=== PATIENT | female | born 1985 | race Two or more races ===

== ENCOUNTER 2021-09-15 06:33 | Emergency (ER) | payer SELFPAY ==
[2021-09-15 06:35] VITALS: BP 132/83
== END 2021-09-15 09:49 | disposition left against medical advice (07) ==
LOC: ER 06:33
DX: N64.59 Other signs and symptoms in breast (principal); J45.909 Unspecified asthma, uncomplicated; Z53.21 Procedure and treatment not carried out due to patient leaving prior to being seen by health care provider

== ENCOUNTER 2023-05-01 14:18 | Emergency (ER) | payer MEDICAID, OTHER ==
[~2023-05-01] VITALS: Ht 157.5 cm; Wt 70.4 kg
[2023-05-01 14:48] VITALS: BP 155/108; PULSE 97; RESP 18; O2SAT 95
[2023-05-01] MEDS ORDERED: AUG875T PO (15:23)
[2023-05-01] MEDS ORDERED: NABU-72 PO (15:23)
== END 2023-05-01 15:24 | disposition home or self-care (01) ==
LOC: ER 14:18
DX: J03.90 Acute tonsillitis, unspecified (principal); H92.01 Otalgia, right ear
CPT/HCPCS: 82962